=== PATIENT | female | born 1955 | race Caucasian/White ===

== ENCOUNTER 2022-03-17 19:57 | Emergency (ER) | payer OTHER, MEDICAID ==
[~2022-03-17] VITALS: Ht 165.1 cm; Wt 81.6 kg
--- NOTE | 2022-03-17 20:35 | NUR ---
PATIENT TO LOBBY VIA W/C
--- NOTE | 2022-03-17 20:35 | NUR ---
PATIENT BP 187/110. PER PATIETN SHE USUALLY TAKES BP MEDS AT 10PM, HASNT TAKEN TODAY.
--- NOTE | 2022-03-17 21:51 | NUR ---
PT W/C ASSITED TO BED #7
[2022-03-17] MEDS ORDERED: ACETAMINOPHEN EXTRA STRENGTH 500 MG TAB PO ONE (22:05)
[2022-03-17] MEDS ORDERED: CYCL-711 PO (22:05)
[2022-03-17] MEDS ORDERED: NAPR-54 PO (22:05)
[2022-03-17] MEDS ORDERED: HYDROcodone/APAP 5/325 MG 1 TAB TAB PO ONE (22:35)
[2022-03-17 22:53] VITALS: BP 152/99
--- NOTE | 2022-03-17 22:57 | NUR ---
Discharge to home with prescriptions in stable condition, ambulatory with steady gait, verbalized understanding of instructions given
== END 2022-03-17 22:57 | disposition home or self-care (01) ==
LOC: MED 19:57
DX: S39.012A Strain of muscle, fascia and tendon of lower back, initial encounter (principal); S46.812A Strain of other muscles, fascia and tendons at shoulder and upper arm level, left arm, initial encounter; I10 Essential (primary) hypertension; E04.2 Nontoxic multinodular goiter; Z79.899 Other long term (current) drug therapy; W19.XXXA Unspecified fall, initial encounter; Y93.89 Activity, other specified; Y92.89 Other specified places as the place of occurrence of the external cause; Y99.8 Other external cause status
CPT/HCPCS: 70450; 72125; 72131; 73030; 99285